=== PATIENT | female | born 1990 | race Caucasian/White ===

== ENCOUNTER → 2019-12-18 08:39 | Outpatient (BNVA) | payer OTHER, SELFPAY | PROVIDERS: Visit Provider Obstetrics & Gynecology | DX: R30.0 Dysuria (principal) | CPT/HCPCS: 81000 ==

== ENCOUNTER → 2019-12-20 10:39 | Outpatient (BNVA) | payer OTHER, SELFPAY | PROVIDERS: Visit Provider Obstetrics & Gynecology | DX: N73.9 Female pelvic inflammatory disease, unspecified (principal); R10.2 Pelvic and perineal pain; N83.202 Unspecified ovarian cyst, left side | CPT/HCPCS: 76830 ==

== ENCOUNTER → 2020-03-02 11:37 | Outpatient (BNVA) | payer OTHER, SELFPAY | PROVIDERS: Visit Provider Obstetrics & Gynecology | DX: Z30.46 Encounter for surveillance of implantable subdermal contraceptive (principal); Z30.42 Encounter for surveillance of injectable contraceptive | CPT/HCPCS: 81025 ==

== ENCOUNTER 2021-10-02 14:22 | Emergency (ER) | payer OTHER, SELFPAY ==
[2021-10-02 14:58] VITALS: BP 126/84; PULSE 93; RESP 18; TEMP 36.6; O2SAT 98; BMI 29.7
--- NOTE | 2021-10-02 15:12 | W.ED.FALL ---
HPI - Fall General: Chief Complaint: Trauma Stated Complaint: Threw off horse, Back pain and ankle pain Time Seen by Provider: 10/02/21 15:11 Source: patient Mode of arrival: ambulatory (with crutches) Limitations: no limitations History of Present Illness: Patient is a 31-year-old female presents to ED today for evaluation following a fall from a horse that occurred yesterday. Patient states she was bucked off a horse and landed primarily onto her lower back and tailbone. She states she also twisted her left ankle and foot. Patient states when she landed onto her tailbone she then fell backwards and struck her head. No LOC. She states she did have a headache yesterday evening and into today and felt a little lightheaded. She does report headache has improved. She complains of some mild neck discomfort. No lacerations or abrasions noted. She is ambulatory with the help of crutches at this time. complaint: fall Onset (ago): day(s) (yesterday) Fall from: other (horse) Fall witnessed: yes, by bystander Place fall occurred: other (outside) Loss of consciousness: None Prolonged down time: no Symptoms prior to fall: none Context: other (horse threw off) Location of injury: head, neck and back Location of injury - extremities: Left: ankle and foot Associated symptoms-after fall: Reports headache(s) and neck pain; Denies abdominal pain or chest pain Review of Systems Eyes: Denies: change in vision, blurry vision or blind spots ENMT: Denies: ear discharge, nasal discharge or epistaxis Card: Denies: chest pain Resp: Denies: dyspnea GI: Denies: abdominal pain Musc: Reports: neck pain, back pain, extremity pain (L foot), extremity swelling (L foot), joint pain (L ankle) and joint swelling (L ankle); Denies: joint redness or joint warmth Neuro: Reports: headache(s); Denies: numbness in extremities, weakness in extremities, sensory changes or dizziness [facility] ED PFSH: Medical History (Updated 10/02/21 @ 17:00 by CEM Forde) Left ovarian cyst Family History Family/Other Breast cancer paternal aunt diagnosed in her 40's Mother Hypertension Father Hypertension Hyperlipidemia Grandmother Hypertension maternal and paternal Grandfather Hypertension maternal and paternal Denies family history of Diabetes CAD (coronary artery disease) Clotting disorder Anesthesia complication Bleeding disorder Stroke Social History Smoking and tobacco status: current some day smoker Alcohol intake: current Alcohol intake frequency: few times a week Alcohol type: wine and hard liquor Physical Exam Const: COMMON NORMALS: no acute distress, patient oriented x3, no limitations, healthy appearing, alert and well nourished GENERAL APPEARANCE: cooperative ORIENTATION/CONSCIOUSNESS: Yes awake, Yes oriented to person, Yes oriented to place and Yes oriented to time HENMT: COMMON NORMALS: normocephalic and atraumatic HEAD & SCALP: normal to inspection, normocephalic and atraumatic FACE & SINUS: normal facial exam Eye: GENERAL EYE: appearance normal, both eyes and all related structures Neck/C-Spine: COMMON NORMALS: full ROM CERVICAL SPINE: Yes cervical ROM normal, Yes pain with cervical ROM, Yes Cervical spine tenderness (mid C spine) and No step off deformity Chest: COMMONS NORMALS: normal inspection of the chest and normal palpation of entire chest wall Resp: COMMON NORMALS: normal respiratory effort and clear to auscultation bilaterally AUSCULTATION: clear to auscultation bilaterally Cardio: COMMON NORMALS: regular rate and regular rhythm RATE: regular rate RHYTHM: regular rhythm GI: COMMON NORMALS: Normal to inspection, nondistended, normoactive bowel sounds present, Soft to palpation and non-tender INSPECTION: No abdominal wall ecchymosis PALPATION: Yes Soft to palpation Back/Pelvis: THORACIC SPINE/UPPER BACK: Yes normal to inspection, Yes thoracic ROM normal, No thoracic spinal tenderness, No paraspinal muscle tenderness and No paraspinal muscle spasm LUMBAR SPINE/LOWER BACK: Yes pain with ROM, Yes lumbar spinal tenderness (lower L spine), No paraspinal muscle tenderness and No paraspinal muscle spasm PELVIS: Yes buttocks normal SACROILIAC JOINTS: Yes SI joints normal SACRUM: tenderness COCCYX: Coccyx tenderness present Extremity: GENERAL: Yes normal exam except as noted LEFT LOWER EXTREMITY: Yes ankle joint (diffuse swelling/ecchymosis to L ankle and lateral proximal foot) Left ankle: Yes ROM (limited secondary to discomfort) and Yes neurovascular exam (normal) and Yes foot & digits Neuro: SHLOMO COMA SCALE: document GCS findings Shlomo coma scale eye opening: Spontaneous Shlomo coma scale verbal response: Orientated Biddle coma scale motor response: Obey commands Shlomo coma scale total score: 15 COMMON NORMALS: patient oriented x3, moves all extremities, no focal motor deficits and no sensory deficits noted SENSORIUM/ORIENTATION: Yes alert, Yes oriented to person, Yes oriented to place and Yes oriented to time Skin: COMMON NORMALS: no rashes or lesions noted GENERAL SKIN EXAM: no rashes or lesions noted TRAUMA: no lacerations or abrasions Course Vital Signs: Vital signs: Vital Signs Temperature 97.8 F 10/02/21 14:58 Pulse Rate 93 10/02/21 14:58 Respiratory Rate 18 10/02/21 14:58 Blood Pressure 126/84 10/02/21 14:58 Pulse Oximetry 98 10/02/21 14:58 MDM - Fall Medical Decision Making XRs/CTs negative. Discussed conservative treatment at home and follow up with PCP this week if pain does not seem to be improving. Return to ED precautions verbally discussed with patient. She has crutches she can use for her foot/ankle swelling/pain. Lab Data Radiology Impressions Ankle X-Ray 10/02/21 15:22 IMPRESSION: No fracture identified. Cervical Spine CT 10/02/21 15:22 IMPRESSION: No acute spine fracture or subluxation. Foot X-Ray 10/02/21 15:22 IMPRESSION: No acute findings. Head CT 10/02/21 15:22 IMPRESSION: 1. No acute intracranial findings. 2. Sinus findings as above. Lumbar Spine X-Ray 10/02/21 15:22 IMPRESSION: No acute finding. Sacrum and Coccyx X-Ray 10/02/21 15:22 IMPRESSION: No acute findings. Discharge Plan Discharge Patient Disposition: Home Clinical Impression: Fall from horse Qualifiers: Encounter type: initial encounter Qualified Code(s): V80.010A - Animal-rider injured by fall from or being thrown from horse in noncollision accident, initial encounter Left ankle sprain Qualifiers: Encounter type: initial encounter Involved ligament of ankle: unspecified ligament Qualified Code(s): S93.402A - Sprain of unspecified ligament of left ankle, initial encounter Coccyx contusion Qualifiers: Encounter type: initial encounter Qualified Code(s): S30.0XXA - Contusion of lower back and pelvis, initial encounter Condition: Stable Prescriptions: No Action ibuprofen 800 mg tablet 800 mg PO Q8H PRN0RF bupropion HCl [Wellbutrin XL] 300 mg tablet extended release 24 hr 300 mg PO QAM 0RF alprazolam 0.5 mg tablet 0.5 mg PO BID PRN0RF phentermine [Adipex-P] 37.5 mg tablet 18.75 mg PO ONCE PRN0RF Rx Instructions: must administer 30 minutes before or 1-2 hours after breakfast medroxyprogesterone [Depo-Provera] 150 mg/mL suspension 150 mg IM ONCE Qty: 1 3RF Discharge Orders: Discharge ED (Routine); Ordered 10/02/21 Ordered By: Cass Hazel Coding Level of Care Code ED Network And Threat Support Specialist for Jovanna Fwd Exam Comprehensive
--- NOTE | 2021-10-02 15:22 | XRR_ITS ---
PROCEDURE INFORMATION: Exam: XR Left Ankle Exam date and time: 10/02/2021 3:53 PM Age: 31 years old Clinical indication: Injury or trauma; Fall; Blunt trauma; Ankle; Left; Additional info: Trauma/fall TECHNIQUE: Imaging protocol: XR Left ankle. Views: 3 or more views. COMPARISON: No relevant prior studies available. FINDINGS: Bones/joints: The bones appear intact and in normal alignment. Small ossified density anterior to the talus appears well corticated and chronic. Soft tissues: Circumferential soft tissue swelling. XR/XR ankle LT min 3V* [id number] IMPRESSION: No fracture identified.
--- NOTE | 2021-10-02 15:22 | XRR_ITS ---
PROCEDURE INFORMATION: Exam: XR Left Foot Exam date and time: 10/02/2021 3:53 PM Age: 31 years old Clinical indication: Injury or trauma; Fall; Blunt trauma; Foot; Left; Additional info: Trauma, fall TECHNIQUE: Imaging protocol: XR Left foot. Views: 3 or more views. COMPARISON: No relevant prior studies available. FINDINGS: Bones/joints: Normal. Soft tissues: Normal. XR/XR foot LT min 3V* [id number] IMPRESSION: No acute findings.
--- NOTE | 2021-10-02 15:22 | XRR_ITS ---
PROCEDURE INFORMATION: Exam: XR Sacrum and Coccyx, 2 or More Views Exam date and time: 10/02/2021 3:46 PM Age: 31 years old Clinical indication: Injury or trauma; Fall; Blunt trauma (contusions or hematomas); Additional info: Trauma, fall TECHNIQUE: Imaging protocol: XR of the sacrum and coccyx, 2 or more views. COMPARISON: US transvaginal [id number] 12/20/2019 10:43 AM FINDINGS: Bones/joints: Normal. No acute fracture. Soft tissues: Normal. XR/XR sacrum coccyx min 2V [id number] IMPRESSION: No acute findings.
--- NOTE | 2021-10-02 15:22 | CTR_ITS ---
PROCEDURE INFORMATION: Exam: CT Cervical Spine Without Contrast Exam date and time: 10/02/2021 4:03 PM Age: 31 years old Clinical indication: Injury or trauma; Blunt trauma; Patient HX: C/O neck pain after being thrown from horse; Additional info: Trauma, fell from horse TECHNIQUE: Imaging protocol: Computed tomography images of the cervical spine without contrast. Radiation optimization: All CT scans at this facility use at least one of these dose optimization techniques: automated exposure control; mA and/or kV adjustment per patient size (includes targeted exams where dose is matched to clinical indication); or iterative reconstruction. COMPARISON: CT head wo con* [id number] 10/02/2021 4:01 PM RADIATION DOSE METRICS: Total DLP (mGy-cm): 595.8 FINDINGS: Bones/joints: Straightening of normal lordosis may be related to spasm or positioning. No acute spine fracture or subluxation. Discs/Spinal canal/Neural foramina: No significant disc protrusion. No severe spinal canal stenosis. No significant neural foraminal narrowing. Lungs: Lung apices are normal. Soft tissues: Unremarkable. CT/CT cervical spin wo con* [id number] IMPRESSION: No acute spine fracture or subluxation.
--- NOTE | 2021-10-02 15:22 | CTR_ITS ---
PROCEDURE INFORMATION: Exam: CT Head Without Contrast Exam date and time: 10/02/2021 4:01 PM Age: 31 years old Clinical indication: Injury or trauma; Blunt trauma (contusions or hematomas); Without loss of consciousness; Patient HX: Thrown from a horse denies loc; Additional info: Trauma, fell from horse TECHNIQUE: Imaging protocol: Computed tomography of the head without contrast. Radiation optimization: All CT scans at this facility use at least one of these dose optimization techniques: automated exposure control; mA and/or kV adjustment per patient size (includes targeted exams where dose is matched to clinical indication); or iterative reconstruction. COMPARISON: No relevant prior studies available. RADIATION DOSE METRICS: Total DLP (mGy-cm): 734.29 FINDINGS: Brain: Normal. No hemorrhage. Unremarkable white matter. No mass effect. Cerebral ventricles: No ventriculomegaly. Paranasal sinuses: Mild ethmoid sinus mucosal thickening. No sinus air-fluid level. Mastoid air cells: Visualized mastoid air cells are well aerated. Bones/joints: Unremarkable. No acute fracture. Soft tissues: Unremarkable. CT/CT head wo con* [id number] IMPRESSION: 1. No acute intracranial findings. 2. Sinus findings as above.
--- NOTE | 2021-10-02 15:22 | XRR_ITS ---
PROCEDURE INFORMATION: Exam: XR Lumbosacral Spine Exam date and time: 10/02/2021 3:46 PM Age: 31 years old Clinical indication: Injury or trauma; Fall; Blunt trauma (contusions or hematomas); Additional info: Fall, trauma TECHNIQUE: Imaging protocol: XR of the lumbosacral spine. Views: 2 or 3 views. COMPARISON: US transvaginal [id number] 12/20/2019 10:43 AM FINDINGS: Bones/joints: Mild L4 limbus vertebral body. No acute fracture or subluxation. The disc spaces are maintained. The facets are intact. Soft tissues: Unremarkable. XR/XR lumbar spine 2-3V* [id number] IMPRESSION: No acute finding.
== END 2021-10-02 17:16 | disposition home or self-care (01) ==
PROVIDERS: Emergency Provider Physician Assistant
DX: S30.0XXA Contusion of lower back and pelvis, initial encounter (principal); S93.402A Sprain of unspecified ligament of left ankle, initial encounter; V80.010A Animal-rider injured by fall from or being thrown from horse in noncollision accident, initial encounter; F17.200 Nicotine dependence, unspecified, uncomplicated
CPT/HCPCS: 70450; 72100; 72125; 72220; 73610; 73630; 99283